=== PATIENT | female | born 1945 | race Caucasian/White ===

== ENCOUNTER 2016-05-25 15:37 | Emergency (ER) | payer OTHER, MEDICARE ==
[~2016-05-25] VITALS: Ht 162.6 cm; Wt 85.0 kg
[~2016-05-25 15:37] MED LIST: ALEN70 PO; B COTAB7 PO; CHOL1CAP6 PO; ESTR1.25 PO; NAPR220T95 PO; PRIL20TA2 PO; SPIR50TA PO; TAB-TAB PO; [UNRECOGNIZED DRUG - OTHER] PO
[2016-05-25 15:41] VITALS: BP 179/90; PULSE 67; RESP 14; TEMP 97.8; O2SAT 95
[2016-05-25] MEDS ORDERED: ESTR1.25 PO (18:06)
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
[2016-05-25] MEDS ORDERED: KETOROLAC TROMETHAMINE 30 MG/ML (IVP) VIAL IVP ONE (18:30)
[2016-05-25] MEDS ORDERED: SODIUM CHLORIDE 0.9% FLUSH 5 ML FLUSH IVF PRN (18:30)
[2016-05-25] MEDS ORDERED: PROCHLORPERAZINE INJ 10 MG/2 ML VIAL IVP ONE (18:30)
[2016-05-25] MEDS ORDERED: diphenhydrAMINE HCL 50 MG/ML VIAL IVP ONE (18:30)
[2016-05-25] MEDS ORDERED: SODIUM CHLORID 0.9% 500 ML INJ 500 ML IV ONE (19:00)
[2016-05-25 19:37] VITALS: BP 167/91; PULSE 55; RESP 20; O2SAT 99
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
== END 2016-05-25 20:50 | disposition home or self-care (01) ==
LOC: NETRI 15:37
DX: R51 Headache (principal); R93.0 Abnormal findings on diagnostic imaging of skull and head, not elsewhere classified; M54.2 Cervicalgia; V49.88XA Car occupant (driver) (passenger) injured in other specified transport accidents, initial encounter; Y92.410 Unspecified street and highway as the place of occurrence of the external cause
CPT/HCPCS: 70450; 72125; 96374; 96375; 99284; J0780; J1200; J1885; J7040